=== PATIENT | female | born 1955 | race Caucasian/White ===

== ENCOUNTER 2019-04-26 11:28 | Outpatient (CLI) | payer MEDICARE, OTHER ==
--- NOTE | 2019-04-26 12:00 | RAD ---
EXAM: XR Cerv Sp Ap Lat STANDARD DATE: 04/26/2019 12:00 AM INDICATION: Neck pain with referral into the left neck and shoulder region COMPARISON: Cervical spine radiograph dated October 02, 2011 FINDING: ACDF spanning C4-C6 is unchanged. There is very mild anterior translation of C2 on C3 with flexion with reduction in the neutral and extension position. There is moderate multilevel facet osteoarthrosis most pronounced at C2-C3. Prevertebral soft tissues are normal appearing. IMPRESSION:Mild abnormal translational motion at C2-C3 likely related to facet degenerative change. S table ACDF of C4-C6.
== END 2019-04-26 11:29 | disposition home or self-care (01) ==
LOC: SCSRAD 11:28
PROVIDERS: ATTEND Neurological Surgery
DX: M54.12 Radiculopathy, cervical region (principal); R93.7 Abnormal findings on diagnostic imaging of other parts of musculoskeletal system; Z98.1 Arthrodesis status
CPT/HCPCS: 72040

== ENCOUNTER 2019-05-16 12:09 | Outpatient (CLI) | payer MEDICARE, OTHER ==
--- NOTE | 2019-05-16 13:35 | MRI ---
MRI of the lumbar spine with and without contrast: 05/16/2019 HISTORY: Radiculopathy, prior surgery COMPARISON: 02/22/2013 TECHNIQUE: Multiplanar multisequence MR imaging of the lumbar spine obtained with and without contras t FINDINGS: The sagittal STIR imaging demonstrates no focal area of osseous marrow edema. Bilateral laminectomy changes noted at L3/L4/L5. There is minimal anterolisthesis of L3 on L4 measuring 4-5 mm. On the basis of 5 lumbar type vertebral bodies, the conus medullaris terminates at T12-L1. T12-L1: Mild bilateral facet hypertrophy. No significant central canal or neural foraminal stenosis. L1-2: There is disc desiccation and mild disc space narrowing with minimal disc bulge. Mild bilateral facet hypertrophy. No significant central canal or neural foraminal stenosis. L2-3: There is disc desiccation and minimal disc bulge. Bilateral facet hypertrophy noted, right grea ter than left. No significant central canal or neural foraminal stenosis. L3-4: There is disc space narrowing with disc desiccation and mild disc bulge. There is bilateral fac et hypertrophy. No significant central canal or neural foraminal stenosis. L4-5: There is mild disc bulge with no central canal stenosis. Bilateral facet hypertrophy noted. There is an anterior epidural mass in the right paracentral region posterior to the L4 vertebral body . This mass appears to be in continuity with the L4-5 intervertebral disc and likely represents a extruded disc fragment with superior migration as it demonstrates rim enhancement on postcontrast sae ging. Presumed extruded disc fragment measures 1.1 cm in craniocaudal dimension, 1.2 cm in transverse dimension, and 1 cm in AP dimension. There is associated right lateral recess stenosis and significant right neural foraminal stenosis. There is a small synovial cyst posteriorly on the left associated with the left facet joint at L4-5 measuring 4 mm. L5-S1: Mild bilateral facet hypertrophy with mild bilateral neural foraminal stenosis. No significant central canal stenosis. The imaged retroperitoneal structures demonstrate no acute findings. Postcontrast imaging demonstrates no abnormal enhancement involving nerve roots of the cauda equina, the intervertebral discs, or the imaged osseous structures. 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 IMPRESSION: Postoperative and degenerative change within the lumbar spine as detailed above. Most sig nificant finding is a disc extrusion in the right paracentral region posterior to the L4 vertebral body likely emanating from the L4-5 intervertebral disc. There is significant associated right latera l recess stenosis and right neural foraminal stenosis.
--- NOTE | 2019-05-16 13:36 | RAD ---
EXAM: 3 views of the lumbosacral spine HISTORY: Low back pain and radiculopathy COMPARISON: 06/17/2016 FINDINGS: 3 views of the lumbosacral spine shows normal height and alignment of the vertebral bodies without fracture or subluxation. The L3/4 intervertebral disc is narrowed. Small osteophytes are seen throughout the lumbar spine. Posterior facet arthrosis is seen in the lower lumbosacral spine. A lignment is unchanged with flexion and extension. The sacroiliac joints are unremarkable. IMPRESSION: Mild degenerative changes of lumbar spine with unchanged alignment with bending
== END 2019-05-16 12:10 | disposition home or self-care (01) ==
LOC: SCSMRI 12:09
PROVIDERS: ATTEND Neurological Surgery
DX: M43.16 Spondylolisthesis, lumbar region (principal); M47.26 Other spondylosis with radiculopathy, lumbar region; M51.16 Intervertebral disc disorders with radiculopathy, lumbar region; M48.061 Spinal stenosis, lumbar region without neurogenic claudication
CPT/HCPCS: 72100; 72158; 82565

== ENCOUNTER 2019-08-29 10:24 | Outpatient (CLI) | payer MEDICARE, OTHER ==
--- NOTE | 2019-08-29 10:46 | RAD ---
XR Lumbar Spine 2 Or 3 View HISTORY: Follow-up of back surgery. COMPARISON: 05/16/2019 study. FINDINGS: Bilateral pedicle screws have been placed at the L4-5 level. Markers of the disc implanter within the confines of the disc level. The disc narrowing and minimal spondylolisthesis of L3 on L4 are stable. Mild disc narrowing is also seen at L1-2 and L5-S1. Vascular calcifications are noted. IMPRESSION: Postoperative changes of the L4-5 level.
== END 2019-08-29 10:25 | disposition home or self-care (01) ==
LOC: SCSRAD 10:24
PROVIDERS: ATTEND Neurological Surgery
DX: M43.16 Spondylolisthesis, lumbar region (principal); Z98.890 Other specified postprocedural states
CPT/HCPCS: 72100

== ENCOUNTER 2020-12-03 15:29 | Outpatient (CLI) | payer MEDICARE, OTHER | END 2020-12-03 15:30 | disposition home or self-care (01) | LOC: SCSRAD 15:29 | PROVIDERS: ATTEND Neurological Surgery | DX: M54.5 Low back pain (principal); M47.816 Spondylosis without myelopathy or radiculopathy, lumbar region; Z98.890 Other specified postprocedural states | CPT/HCPCS: 72110 ==